=== PATIENT | male | born 1940 | race American Indian/Alaskan Native ===

== ENCOUNTER 2017-03-04 06:31 | Day surgery (SDC) | payer MEDICARE ==
[2017-03-04] MEDS ORDERED: ECOTRIN PO ONE ×2 (07:00→07:07)
[2017-03-04] MEDS ORDERED: NACL 0.9% 500 ML 500 ML IV SCH (07:00)
[2017-03-04] MEDS ORDERED: NACL 0.9% 500 ML 500 ML ONE (07:07)
[2017-03-04 07:35] LABS: Hematocrit 35.9 % (35.5-45.6); Hemoglobin 11.7 gm/dl (11.8-15.2); Mean Corpuscular HGB Conc 33 % (32-34); Mean Corpuscular Hemoglobin 32 pg (28-32); Mean Corpuscular Volume 96 fl (84-94); Platelet Count 120 K/mm3 (140-440); Red Blood Count 3.73 M/mm3 (3.65-5.03); Red Cell Distribution Width 13.1 % (13.2-15.2); White Blood Count 3.5 K/mm3 (4.5-11.0)
[2017-03-04 07:45] LABS: INR 1.01 (0.87-1.13)
[2017-03-04 07:57] LABS: Anion Gap 17 mmol/L; BUN/Creatinine Ratio 18; Blood Urea Nitrogen 20 mg/dL (9-20); Calcium 8.7 mg/dL (8.4-10.2); Carbon Dioxide 25 mmol/L (22-30); Chloride 104.3 mmol/L (98-107); Glucose 100 mg/dL (75-100); Potassium 4.1 mmol/L (3.6-5.0); Sodium 142 mmol/L (137-145)
[2017-03-04 08:24] LABS: Blastocytes % (Manual) 0 %; Diff Status Complete; Large Platelets Few; Platelet Estimate Consistent w Auto
[2017-03-04] MEDS ORDERED: HEPARIN 10,000 UNITS/10 ML ONE (08:54)
[2017-03-04] MEDS ORDERED: HEPARIN/NS 5000 UNIT/500ML(CATH LAB) 1,000 ML IR ONE (08:54)
[2017-03-04] MEDS ORDERED: CALAN ONE (08:54)
[2017-03-04] MEDS ORDERED: NITROGLYCERIN SYRINGE 3 ML ONE (08:55)
[2017-03-04] MEDS ORDERED: XYLOCAINE 2% INFILTRATI ONE (08:55)
[2017-03-04] MEDS ORDERED: VERSED ONE (08:55)
[2017-03-04] MEDS ORDERED: SUBLIMAZE ONE (08:55)
--- NOTE | 2017-03-04 10:35 | Discharge Summary ---
Short Stay Discharge Plan Activity: advance as tolerated Weight Bearing Status: Full Weight Bearing Diet: low fat, low cholesterol, low salt Wound: keep clean and dry Special Instructions: no heavy lifting (3 days) Follow up with: LEIGH ANN HARRELL MD [Primary Care Provider] - 7 Days GRACIE ESPARZA MD [Staff Physician] - 7 Days
[2017-03-04] MEDS ORDERED: NACL 0.9% 1000 ML 1,000 ML IV SCH (11:00)
--- NOTE | 2017-03-04 12:14 | Cardiac Catherization Report ---
CARDIAC CATHETERIZATION REASON FOR PROCEDURE: Abnormal thallium stress test. PROCEDURE: The patient was prepped and draped in a sterile fashion after informed consent. The right radial artery was entered using the Seldinger technique followed by placement of a 6-[place] hydrophilic sheath. Routine radial cocktail was administered via the sheath. A #3.5 left Yossi catheter was used for left coronary angiography. A #4 right Yossi was used for right coronary angiography. The right Yossi catheter was used for left ventricular angiography. The catheters were removed, sheath removed, and hemostasis achieved using manual compression. The patient was returned to the post-procedure unit in stable condition. There were no complications. FINDINGS: HEMODYNAMICS: Left ventricular end-diastolic pressure was 21, following coronary angiography. Ascending aortic pressure was 182/86. There was no significant pressure gradient on pullback across the aortic valve. CORONARY ANGIOGRAPHY: There was mild distal tapering of the left main coronary artery, before its bifurcation into the LAD and circumflex arteries. The left anterior descending artery contained diffuse mild atherosclerosis of its proximal and mid segments. There was also diffuse mild to moderate atherosclerosis of the mid and distal segments of the LAD. No severe obstructive lesions were noted in either the LAD or the diagonal branches. The circumflex artery and its obtuse marginal branches contained minimal irregularities. The right coronary artery was a medium-sized, but a dominant vessel. There was diffuse moderate atherosclerosis of the entire mid segment. There was up to 30% luminal stenosis, followed by another long 30% to 50% stenosis of the mid segment. The distal AV groove right coronary artery also contained diffuse mild atherosclerosis. Following that, there was severe diffuse occlusive disease of the distal segment of the right posterior descending branch. Left ventricular systolic function was at lower limits of normal, estimated ejection fraction 50% to 55%. CONCLUSION: 1. Diffuse [id number] nonobstructive coronary artery disease as above. 2. 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 3. Left ventricular systolic function at the lower limits of normal, ejection fraction of 50% to 55%. RECOMMENDATION: 1. Aggressive risk factor modification. 2. Medical therapy for small vessel occlusion of the terminal branch of the right coronary system. JOB# [id number] CA/NTS
[2017-03-04 14:07] VITALS: BP 116/55
== END 2017-03-04 14:20 | disposition home or self-care (01) ==
LOC: CATHLABREC 06:31
PROVIDERS: ATTEND Internal Medicine Cardiovascular Disease
DX: I25.10 Atherosclerotic heart disease of native coronary artery without angina pectoris (principal); I10 Essential (primary) hypertension; Z88.6 Allergy status to analgesic agent; Z79.82 Long term (current) use of aspirin; Z82.49 Family history of ischemic heart disease and other diseases of the circulatory system
CPT/HCPCS: 36415; 80048; 85007; 85025; 85610; 85730; 93005; 93010; 93458; C1894; J1644; J2250; J3010; J7040; Q9967